=== PATIENT | female | born 1970 | race Caucasian/White ===

== ENCOUNTER 2019-03-17 17:30 | Emergency (ER) | payer MEDICAID ==
[~2019-03-17] VITALS: Ht 162.6 cm; Wt 63.0 kg
[2019-03-17 18:10] VITALS: BP 145/77
[2019-03-17] MEDS ORDERED: DIAZEPAM 5 MG TABLET PO ONE (18:30)
[2019-03-17] MEDS ORDERED: KETOROLAC 30 MG/1 ML IM ONE (18:30)
--- NOTE | 2019-03-17 18:54 | NUR ---
PT TO ROOM FROM LOBBY WITH STEADY GAIT IN NAD.
[2019-03-17] MEDS ORDERED: DIAZEPAM 5 MG TABLET ONE (19:30)
[2019-03-17] MEDS ORDERED: KETOROLAC 30 MG/1 ML ONE (19:30)
== END 2019-03-17 20:18 | disposition home or self-care (01) ==
LOC: ED 20:12
DX: M47.892 Other spondylosis, cervical region (principal); G24.3 Spasmodic torticollis; I10 Essential (primary) hypertension
CPT/HCPCS: 72050; 96372; 99283; J1885

== ENCOUNTER 2019-03-26 07:05 | Emergency (ER) | payer MEDICAID ==
[~2019-03-26] VITALS: Ht 162.6 cm; Wt 63.5 kg
[2019-03-26 07:08] VITALS: BP 151/87
== END 2019-03-26 07:54 | disposition home or self-care (01) ==
LOC: ED 07:46
DX: S16.1XXA Strain of muscle, fascia and tendon at neck level, initial encounter (principal); M47.892 Other spondylosis, cervical region; Z02.89 Encounter for other administrative examinations; I10 Essential (primary) hypertension; F17.200 Nicotine dependence, unspecified, uncomplicated; X58.XXXA Exposure to other specified factors, initial encounter; Y93.89 Activity, other specified; Y92.89 Other specified places as the place of occurrence of the external cause; Y99.8 Other external cause status
CPT/HCPCS: 99281